=== PATIENT | female | born 1950 | race Caucasian/White ===

== ENCOUNTER 2017-05-04 06:10 | Day surgery (SDC) | payer BC ==
[~2017-05-04] VITALS: Ht 157.5 cm; Wt 59.0 kg
[~2017-05-04 06:10] MED LIST: ALLERGY1 TAB OR; CALCIUM600 M1 OR; FISH OIL1200 M1 OR; MEGARED OMEGA-31 CAP PO; MULTI FOR HER 50+ PO; MULTIVITAM10 OR; SIMVASTATIN40 MG OR; SIMVASTATIN40 MG PO; ZOCOR40 MG OR; ZYRTEC10 MG OR
[2017-05-04 08:39] VITALS: BP 113/59
== END 2017-05-04 08:45 | disposition home or self-care (01) | DRG 392 ==
LOC: ENDO 06:10 → ORM 07:00 → ENDO 08:45
PROVIDERS: ATTEND Internal Medicine Gastroenterology
PROC: 0DJD8ZZ Inspection of Lower Intestinal Tract, Via Natural or Artificial Opening Endoscopic (ICD-10-PCS; principal; 2017-05-04)
DX: K59.00 Constipation, unspecified (principal); K64.4 Residual hemorrhoidal skin tags; K64.8 Other hemorrhoids; E78.00 Pure hypercholesterolemia, unspecified

== ENCOUNTER 2017-11-02 06:32 | Day surgery (SDC) | payer MEDICARE ==
[~2017-11-02] VITALS: Ht 157.5 cm; Wt 62.6 kg
[2017-11-02 09:27] VITALS: BP 124/60
== END 2017-11-02 09:35 | disposition home or self-care (01) ==
LOC: ENDO 06:32
PROVIDERS: ATTEND Internal Medicine Gastroenterology
PROC: 0DJD8ZZ Inspection of Lower Intestinal Tract, Via Natural or Artificial Opening Endoscopic (ICD-10-PCS; principal; 2017-11-02)
DX: K59.00 Constipation, unspecified (principal); K64.4 Residual hemorrhoidal skin tags; K64.8 Other hemorrhoids